=== PATIENT | male | born 1975 | race Caucasian/White ===

== ENCOUNTER 2019-06-15 19:48 | Emergency (ER) | payer SELFPAY ==
[~2019-06-15] VITALS: Ht 188 cm; Wt 77.5 kg
[2019-06-15 19:59] VITALS: BP 136/87
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
== END 2019-06-15 20:42 | disposition left against medical advice (07) ==
LOC: ED 20:36
DX: R21 Rash and other nonspecific skin eruption (principal); Z53.21 Procedure and treatment not carried out due to patient leaving prior to being seen by health care provider

== ENCOUNTER 2019-06-15 22:42 | Emergency (ER) | payer SELFPAY ==
[~2019-06-15] VITALS: Ht 188 cm; Wt 75.0 kg
[2019-06-15 23:09] VITALS: BP 128/83
--- NOTE | 2019-06-16 00:16 | NUR ---
Patient/Caregiver given discharge instructions and they have confirmed that they understand the instructions. Patient ambulatory with steady gait.
== END 2019-06-16 00:18 ==
LOC: ED 06-16 00:12
DX: L01.01 Non-bullous impetigo (principal)
CPT/HCPCS: 99283